=== PATIENT | female | born 1975 | race Caucasian/White ===

== ENCOUNTER 2022-05-08 08:19 | Emergency (ER) | payer OTHER, SELFPAY ==
[2022-05-08 08:25] VITALS: BP 140/96; PULSE 100; RESP 16; TEMP 36.9; O2SAT 99
--- NOTE | 2022-05-08 09:01 | ED.URI ---
HPI - URI/Sore Throat General Chief Complaint: Upper Respiratory Infection Stated Complaint: Sore Throat/Bodyaches Time Seen by Provider: 05/08/22 09:01 Source: patient, RN notes reviewed and old records reviewed Mode of arrival: ambulatory Limitations: no limitations History of Present Illness HPI Narrative: 46-year-old female who presents to [facility] with flu-like symptoms with body aches which started last night denies any fever. Patient states she was exposed to someone who was positive for flu on Friday. Patient has been taking ibuprofen and Claritin for her symptoms. Patient reports some cough and headache with minimal nasal drainage. Patient reports that she has been COVID vaccinated no flu shot. MD elicited complaint: other (Body aches, scratchy throat) Onset (ago): day(s) (Day 2 of symptoms) Treatments prior to arrival: ibuprofen and other (Claritin) Related Data Home Medications Medication Instructions Recorded Confirmed loratadine 10 mg tablet (Claritin) 10 mg PO DAILY PRN allergic 11/07/21 05/08/22 symptoms cyanocobalamin (vitamin B-12) 1,000 mcg PO DAILY 11/17/21 05/08/22 1,000 mcg tablet Allergies Allergy/AdvReac Type Severity Reaction Status Date / Time promethazine Allergy Unknown Rash Verified 05/08/22 08:48 No Known Allergies Allergy Unverified 10/14/18 09:58 Review of Systems Review of Systems: CONSTITUTIONAL: Reports malaise, chills, sweats, no known fever. EYES: Denies visual changes, redness, or discharge. ENT: Reports rhinorrhea, congestion, sinus pain, no otalgia positive sore throat. CARDIOVASCULAR: Denies chest pain, palpitations, or edema. RESPIRATORY: Reports cough.? Denies dyspnea. GASTROINTESTINAL: Denies abdominal pain, nausea, vomiting, diarrhea SKIN: Denies rash or itching. MUSCULOSKELETAL: Reports myalgia. NEUROLOGIC: Reports headache. All systems reviewed & are unremarkable except as noted in HPI and below PMFSH Past Medical History Medical History Abnormal fasting glucose (11/09/21) Fasting glucose 106 on 11/09/2021. Acute sinusitis BMI 25.0-25.9,adult Encounter for wellness examination in adult Overweight (BMI 25.0-29.9) Primary hypertension Sore throat Vertigo Vitamin B12 deficiency (11/09/21) Level low at 287 with goal greater than 400 on 11/09/2021. Family History Family History Mother Hypertension Grandparent Emphysema of lung Grandparent Lung cancer Grandparent Lung cancer Alzheimer disease Grandparent Heart failure Social History Social History Smoking status: Former smoker Smoking end date: 06/16/09 Alcohol intake: current Substance use: never Comments At time of signature, agree with nursing past medical, surgical, social and family history. There is no relevant family history pertinent to the presenting complaint Exam Narrative: GENERAL: Well-appearing, well-nourished, and in no acute distress. HEAD: Normocephalic EYES: PERRLA, conjunctivae clear ENT: Nares clear, turbinates edematous and erythematous, clear discharge. Mucous membranes moist. TM pearly wilson with dull light reflex bilaterally; no tragal tenderness. Oropharynx erythematous without lesions. Tonsils enlarged and without exudate, no drooling, no hoarseness, no trismus, uvula midline. Some postnasal drainage NECK: Supple. No lymphadenopathy CHEST: Clear to auscultation, breath sounds equal. No wheezing, rhonchi, rales, or stridor. No respiratory distress, speaks in full sentences. Cough with SaO2 99% on room air HEART: Regular rate and rhythm. No murmur heard. SKIN: Warm, dry, no rash. NEURO: Alert and oriented x3. PSYCH: Normal mood and affect Course Course Emergency Course: Patient is aware of diagnosis, unders
== END 2022-05-08 09:36 | disposition home or self-care (01) ==
PROVIDERS: Emergency Provider Registered Nurse; PCP Family Medicine
DX: J06.9 Acute upper respiratory infection, unspecified (principal); Z87.891 Personal history of nicotine dependence; I10 Essential (primary) hypertension; E53.8 Deficiency of other specified B group vitamins
CPT/HCPCS: 87081; 87804; 87880; 99213; G0463

== ENCOUNTER 2023-08-20 10:41 | Outpatient (CLI) | payer OTHER, SELFPAY ==
--- NOTE | 2023-09-05 21:35 | WPDHOMESLEEP ---
Sleep Study - Home Unattended Date of Study: 08/20/23 Ordering Provider: Mark Jones MD Interpreting Provider: Joselyn Medina MD Home Sleep Study Type: Watch PAT Height: 1.65 m Weight: 74.843 kg Body Mass Index: 27.4 Neck Circumference (inches): 14 [place]: 3 Reason for Sleep Study Loud snoring Sleep History Prema Ngo is a 47-year-old woman with hypertension, seasonal allergies and GERD. She is having problems with loud snoring, no improvement using Breathe Right nasal strips. She never awakens from sleep short of breath. She never wakes at night with heartburn, belching or coughing.??She constantly snores, constantly snores loudly enough that others complain. She rarely has trouble sleeping when she has a cold. She never wakes up gasping for breath during the night. She never has breathing problems at night. She never sweats excessively at night. She neck notices her heart pounding or beating irregularly during the night. She never falls asleep during the day. She never falls asleep involuntarily, never falls asleep while driving. She never experiences loss of muscle tone with strong emotion. She never feels paralyzed on waking or falling asleep. She never experiences vivid dreams upon waking or falling asleep. She never feels afraid of going to sleep. She never has nightmares. She occasionally recalls her dreams. She she occasionally has thoughts racing through her mind. She she occasionally feels sad, depressed or anxious. She never notices parts of her body jerk, never kicks during the night, never feels crawling or aching feelings in her legs or leg pain at night. She does not have morning jaw pain or grind her teeth at night. She never feels bothered by pain during the day, is never awakened by pain during the night. She never wakes up feeling stiff in the morning, never wakes feeling sore or achy in the morning. She rarely awakens with pain in her neck, spine, or joints. She takes antacids regularly. She reports losing 5 lb in the last year. Normal bedtime is between 9:00 p.m. and 9:30 p.m., sometimes falls asleep quickly and at other times it may take 30 minutes. She generally wakes up between 2 and 3 times at night to go to the bathroom. She is able to return to sleep within a few minutes. Her normal wake time is 5:45 a.m.. On weekends, bedtime is between 10:00 p.m. and 12 midnight, and wake time is 7:00 a.m.. She takes naps on weekends only. A short nap lasting 10-15 minutes is not refreshing. Most of the time she feels adequate on awakening. She feels better in the morning compared to other times of day. Habits:??Tobacco: Former smoker Caffeine: 2 cups per day. Alcohol: On weekends, 5-6 drinks Recreational substances: none PMFSH Past Medical History Medical History Abnormal fasting glucose (11/09/21) Fasting glucose 106 on 11/09/2021. Glucose 129 with hemoglobin A1c 5.8 on 12/06/2022. Acute low back pain Acute sinusitis Anxiety with flying Benign paroxysmal positional vertigo due to bilateral vestibular disorder BMI 25.0-25.9,adult BMI 26.0-26.9,adult BMI 27.0-27.9,adult Controlled diabetes mellitus (12/06/22) fasting glucose 129 with hemoglobin A1c 5.8 on 12/06/2022. Glucose 108 with hemoglobin A1c 5.6 on 07/11/2023. Encounter for wellness examination in adult Hypersomnia Indigestion Loud snoring Overweight (BMI 25.0-29.9) Inocencia-menopausal Hormones postmenopausal 12/06/2022 with estradiol level of 7, FSH 78.7, LH 31.5. Primary hypertension Sore throat Vertigo Vitamin B12 deficiency (11/09/21) Level low at 287 with goal greater than 400 on 11/09/2021. Level normal at 579 with folic acid 13.2 and hemoglobin 14.4 on 12/06/2022. Family History Family History Mother Hypertension Grandparent Emphysema of lung Grandparent Lung cancer Grandparen
[2023-09-15 10:46] VITALS: BMI 27.4
== END 2023-08-21 09:37 | disposition home or self-care (01) ==
LOC: ANHCSM 10:42
PROVIDERS: PCP Family Medicine; Visit Provider Family Medicine
DX: G47.10 Hypersomnia, unspecified (principal)
CPT/HCPCS: 95800

== ENCOUNTER 2023-10-22 11:14 | Outpatient (CLI) | payer OTHER, SELFPAY ==
--- NOTE | ~2023-10-22 | XR_ITS ---
EXAMINATION: XR wrist RT min 3V DATE: 10/22/2023 11:31 INDICATION: Lateral right wrist pain. TECHNIQUE: 4 views of right wrist were obtained. COMPARISON: None. FINDINGS: Bone alignment is normal. No fracture. There is mild osteoarthritis of first carpometacarpa l joint and pisotriquetral joint. IMPRESSION: 1. Mild polyarticular osteoarthritis. Reviewed, dictated and finalized at location A.
== END 2023-10-22 11:15 ==
LOC: GOSHIMG 11:16
PROVIDERS: PCP Family Medicine; Visit Provider Chiropractor
DX: M19.032 Primary osteoarthritis, left wrist (principal)
CPT/HCPCS: 73110

== ENCOUNTER 2024-01-21 07:33 | Day surgery (SDC) | payer OTHER, SELFPAY ==
[2024-01-02 11:59] VITALS: BMI 28.5
[2024-01-13 13:30] VITALS: BMI 27.5
[2024-01-21 09:03] VITALS: BP 148/100; PULSE 90; RESP 15; TEMP 36.4; O2SAT 100; BMI 27.1
[2024-01-21] MEDS: LACTATED RINGERS 1,000 ML 150 ML IV CONT (09:14)
--- NOTE | 2024-01-21 09:15 | PM.HPGS ---
History of Present Illness History of Present Illness Consent: Risks, benefits, and alternatives have been discussed and questions answered. Patient agrees to proceed with procedure. Chief complaint: Neoplasm Screening Narrative: Prema Ngo is a 48 year old female presents for screening colonoscopy. Patient's current weight appetite and bowel movements are normal. Patient she denies abdominal pain. There has been no bleeding. Family is noncontributory. Review of Systems Review of Systems: All systems reviewed & are unremarkable except as noted in HPI and below PMFSH Past Medical History Medical History (Updated 12/03/23 @ 15:59 by Mark Jones MD) Abnormal fasting glucose (11/09/21) Fasting glucose 106 on 11/09/2021. Glucose 129 with hemoglobin A1c 5.8 on 12/06/2022. Acute low back pain Acute sinusitis Anxiety with flying Benign paroxysmal positional vertigo due to bilateral vestibular disorder BMI 25.0-25.9,adult BMI 26.0-26.9,adult BMI 27.0-27.9,adult BMI 28.0-28.9,adult Chronic pain of right wrist (~2023) polyarticular arthritis 10/22/2023 Colon cancer screening Controlled diabetes mellitus (12/06/22) fasting glucose 129 with hemoglobin A1c 5.8 on 12/06/2022. Glucose 108 with hemoglobin A1c 5.6 on 07/11/2023. De Quervain's tenosynovitis Encounter for wellness examination in adult Hypersomnia No evidence of obstructive sleep apnea on 09/15/2023. Loud snoring. Indigestion Loud snoring Loud snoring on home sleep study with no LYDIA on 09/15/2023. Overweight (BMI 25.0-29.9) Inocencia-menopausal Hormones postmenopausal 12/06/2022 with estradiol level of 7, FSH 78.7, LH 31.5. Primary hypertension Sore throat Vertigo Vitamin B12 deficiency (11/09/21) Level low at 287 with goal greater than 400 on 11/09/2021. Level normal at 579 with folic acid 13.2 and hemoglobin 14.4 on 12/06/2022. Family History Family History Mother Hypertension Grandparent Emphysema of lung Grandparent Lung cancer Grandparent Lung cancer Alzheimer disease Grandparent Heart failure Social History Social History Smoking status: Former smoker Tobacco type: cigarettes Smoking end date: 06/16/09 Alcohol intake: current Drinks per week: 6 Substance use: never Substance use type: does not use Lack of Transportation: No Lack of Food: Never True Current Housing: I Have Housing Concerned About Future Housing: No Difficulty Paying Gas/Electric Bills: No Difficulty Paying for Meds: No Currently Unemployed: No Education: Trade/Vocational Certificate Difficulty w/ Childcare or Family Care: No Living arrangements: with family Spiritual care concerns: No Meds Home Medications and Allergies Home Medications Medication Instructions Recorded Confirmed Type loratadine 10 mg tablet (Claritin) 10 mg PO DAILY PRN allergic 11/07/21 01/21/24 History symptoms cyanocobalamin (vitamin B-12) 1,000 mcg PO DAILY 11/17/21 01/21/24 History 1,000 mcg tablet alprazolam 0.25 mg tablet 0.25 mg PO BID PRN anxiety #4 tabs 10/30/22 01/21/24 Rx famotidine-Ca carb-mag hydrox 10 1 tablet PO BID PRN indigestion 10/30/22 01/21/24 History mg-800 mg-165 mg chewable tablet (Pepcid Complete) meclizine 25 mg tablet 25 mg PO TID PRN dizziness #30 tabs 05/06/23 01/21/24 Rx irbesartan 300 mg tablet 300 mg PO DAILY #30 tabs 12/03/23 01/21/24 Rx metformin 500 mg tablet 500 mg PO BIDWMEAL #60 tabs 12/03/23 01/21/24 Rx venlafaxine 37.5 mg 37.5 mg PO DAILY #30 caps 12/03/23 01/13/24 Rx capsule,extended release 24 hr (Effexor XR) Allergies Allergy/AdvReac Type Severity Reaction Status Date / Time promethazine Allergy Unknown Rash Verified 01/21/24 09:02 lisinopril AdvReac Intermediate Cough Verified 01/21/24 09:02 Vital Signs Vital Signs - 24 hr
--- NOTE | 2024-01-21 09:18 | WPDANESEPPF ---
Anes - Initial Pre Proc Eval Procedure: Operation Date: 01/21/24 10:00 Proposed Procedures p Screening Colonoscopy - Ryan Riggs MD Date/Time: 01/21/24 09:18 Surgeon: Ryan Riggs MD Pre Op Diagnosis: Neoplasm Screening Patient Data Age: 48 Gender: F Height: 1.65 m Weight: 73.95 kg Last Vital Signs Temp 36.4 C 01/21/24 09:03 Pulse 90 01/21/24 09:03 Resp 15 01/21/24 09:03 BP 148/100 H 01/21/24 09:03 Pulse Ox 100 01/21/24 09:03 O2 Del Method Room Air 01/21/24 09:03 Allergies Allergy/AdvReac Type Severity Reaction Status Date / Time promethazine Allergy Unknown Rash Verified 01/21/24 09:02 lisinopril AdvReac Intermediate Cough Verified 01/21/24 09:02 Home Medications Medication Instructions Recorded Confirmed Type loratadine 10 mg tablet (Claritin) 10 mg PO DAILY PRN allergic 11/07/21 01/21/24 History symptoms cyanocobalamin (vitamin B-12) 1,000 mcg PO DAILY 11/17/21 01/21/24 History 1,000 mcg tablet alprazolam 0.25 mg tablet 0.25 mg PO BID PRN anxiety #4 tabs 10/30/22 01/21/24 Rx famotidine-Ca carb-mag hydrox 10 1 tablet PO BID PRN indigestion 10/30/22 01/21/24 History mg-800 mg-165 mg chewable tablet (Pepcid Complete) meclizine 25 mg tablet 25 mg PO TID PRN dizziness #30 tabs 05/06/23 01/21/24 Rx irbesartan 300 mg tablet 300 mg PO DAILY #30 tabs 12/03/23 01/21/24 Rx metformin 500 mg tablet 500 mg PO BIDWMEAL #60 tabs 12/03/23 01/21/24 Rx venlafaxine 37.5 mg 37.5 mg PO DAILY #30 caps 12/03/23 01/13/24 Rx capsule,extended release 24 hr (Effexor XR) Patient hx anesthesia problems: none Family hx anesthesia problems: none Results Review: All pre-operative results and documents have been reviewed as part of the pre-operative evaluation. [facility] Past Medical History Medical History Abnormal fasting glucose (11/09/21) Fasting glucose 106 on 11/09/2021. Glucose 129 with hemoglobin A1c 5.8 on 12/06/2022. Acute low back pain Acute sinusitis Anxiety with flying Benign paroxysmal positional vertigo due to bilateral vestibular disorder BMI 25.0-25.9,adult BMI 26.0-26.9,adult BMI 27.0-27.9,adult BMI 28.0-28.9,adult Chronic pain of right wrist (~2023) polyarticular arthritis 10/22/2023 Colon cancer screening Controlled diabetes mellitus (12/06/22) fasting glucose 129 with hemoglobin A1c 5.8 on 12/06/2022. Glucose 108 with hemoglobin A1c 5.6 on 07/11/2023. De Quernela's tenosynovitis Encounter for wellness examination in adult Hypersomnia No evidence of obstructive sleep apnea on 09/15/2023. Loud snoring. Indigestion Loud snoring Loud snoring on home sleep study with no LYDIA on 09/15/2023. Overweight (BMI 25.0-29.9) Inocencia-menopausal Hormones postmenopausal 12/06/2022 with estradiol level of 7, FSH 78.7, LH 31.5. Primary hypertension Sore throat Vertigo Vitamin B12 deficiency (11/09/21) Level low at 287 with goal greater than 400 on 11/09/2021. Level normal at 579 with folic acid 13.2 and hemoglobin 14.4 on 12/06/2022. Family History Family History Mother Hypertension Grandparent Emphysema of lung Grandparent Lung cancer Grandparent Lung cancer Alzheimer disease Grandparent Heart failure Social History Social History Smoking status: Former smoker Tobacco type: cigarettes Smoking end date: 06/16/09 Alcohol intake: current Drinks per week: 6 Substance use: never Substance use type: does not use Lack of Transportation: No Lack of Food: Never True Current Housing: I Have Housing Concerned About Future Housing: No Difficulty Paying Gas/Electric Bills: No Difficulty Paying for Meds: No Currently Unemployed: No Education: Trade/Vocational Certificate Difficulty w/ Childcare or Family Care: No Living ar
[2024-01-21 10:08] VITALS: BP 107/82; PULSE 80; RESP 14; O2SAT 100
--- NOTE | 2024-01-21 10:13 | WPDANESPN ---
Anes - Prog Note Post-Op Date/Time: 01/21/24 10:13 Cardiovascular status: normal Respiratory status: normal Airway patency: baseline Mental status: baseline Post-Op hydration status: normal Vital Signs: Last Vital Signs Temp 36.4 C 01/21/24 09:03 Pulse 90 01/21/24 09:03 Resp 15 01/21/24 09:03 BP 148/100 H 01/21/24 09:03 Pulse Ox 100 01/21/24 09:03 O2 Del Method Room Air 01/21/24 09:03 Pain Score (VAS): 0/10 I/O: Intake & Output 01/20/24 01/21/24 01/21/24 23:59 07:59 15:59 Intake Total 550 Balance 550 Patient Feedback: Patient satisfied with anesthetic care.
[2024-01-21 10:18] VITALS: BP 147/94; PULSE 68; RESP 16; O2SAT 100
[2024-01-21 10:28] VITALS: BP 152/100; PULSE 66; RESP 20; O2SAT 100
== END 2024-01-21 10:31 | disposition home or self-care (01) ==
PROVIDERS: PCP Family Medicine; Visit Provider Internal Medicine Gastroenterology
PROC: 0DJD8ZZ Inspection of Lower Intestinal Tract, Via Natural or Artificial Opening Endoscopic (ICD-10-PCS; CPT 45378; principal; 2024-01-21 10:00)
DX: Z12.11 Encounter for screening for malignant neoplasm of colon (principal); K64.8 Other hemorrhoids
CPT/HCPCS: 45378